=== PATIENT | male | born 1960 | race Caucasian/White ===

== ENCOUNTER 2018-01-06 08:13 | Outpatient (CLI) | payer OTHER ==
[2016-05-06 19:38] VITALS: BP 135/91
[2018-01-06 09:03] LABS: eGFR (African) > 60; eGFR (Non-African) > 60
== END 2018-01-06 11:39 ==
LOC: LAB 08:13
PROVIDERS: ATTEND Family Medicine
DX: E11.9 Type 2 diabetes mellitus without complications (principal); E03.9 Hypothyroidism, unspecified
CPT/HCPCS: 36415; 80053; 80061; 83036; 84443

== ENCOUNTER 2018-05-16 10:58 | Outpatient (CLI) | payer OTHER ==
[2016-05-06 19:38] VITALS: BP 135/91
--- NOTE | 2018-05-16 15:17 | Diagnostic Imaging Report ---
RYAN ISAAC [facility] [id number] [address] [id number] Report Submission Date: May 16, 2018 11:47:28 AM CDT Patient Study Name: JOYCE LANDEROS Date: May 16, 2018 11:10:56 AM CDT Modality Type: DX Gender: M Description: LOWER EXTREMITY : 62 Institution: [facility] Physician: RYAN ISAAC Right knee History: Fell 3 weeks ago with pain AP, lateral and sunrise views of the right knee were obtained which demonstrate no osseous abnormality and no joint effusion. Impression: Unremarkable right knee. Electronically signed on May 16, 2018 11:47:28 AM CDT by: Laurel SILVEIRA
== END 2018-05-16 11:00 ==
LOC: RAD 10:58
PROVIDERS: ATTEND Family Medicine
DX: S80.02XA Contusion of left knee, initial encounter (principal)
CPT/HCPCS: 73562